=== PATIENT | male | born 2000 | race Caucasian/White ===

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

== ENCOUNTER 2023-12-31 16:07 | Emergency (ER) | payer OTHER, SELFPAY ==
[2023-12-31] VITALS (9 sets, daily range): BP systolic 142–153; BP diastolic 70–89; PULSE 101–115; RESP 18–20; TEMP 36.9; O2SAT 97–100; BMI 28.3
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
[2023-12-31 16:35] LABS: Add Manual Diff / Slide Review NO; Basophils Absolute Auto 0 /uL (0-100); Basophils Percent Auto 0.3 % (0-2); Eosinophils Absolute Auto 0 /uL (0-450); Eosinophils Percent Auto 0.3 % (2-4); Hematocrit 39.9 % (41-53); Hemoglobin 13.7 g/dL (13.5-17.5); Lymphocytes Absolute Auto 900 /uL (1100-4500); Lymphocytes Percent Auto 7.3 % (25-40); Mean Corpuscular HGB Conc 34.4 % (30-36); Mean Corpuscular Hemoglobin 29.1 PG (26-34); Mean Corpuscular Volume 84.7 fL (80-100); Monocytes Absolute Auto 800 /uL (0-900); Monocytes Percent Auto 6.7 % (3-14); Neutrophils Absolute Auto 10100 /uL (1500-7000); Neutrophils Percent Auto 85.4 % (50-75); Platelet Count 278 X10^3/uL (150-400); Red Blood Cell Count 4.71 X10^6/uL (4.5-5.9); Red Cell Distribution Width 12.9 % (11.6-14.8); White Blood Cell Count 11.9 X10^3/uL (4.5-11.0)
[2023-12-31] MEDS: SODIUM CHLORIDE 0.9% 1,000 ML 1000 ML IV (16:39)
[2023-12-31 16:43] LABS: Alanine Aminotransferase 20 IU/L (<50); Albumin 4.8 g/dL (3.5-5.0); Albumin Globulin Ratio 1.1 (1.0-2.8); Alkaline Phosphatase 74 U/L (38-126); Aspartate Aminotransferase 19 IU/L (17-59); BUN Creatinine Ratio 24.7 (6-22); Bilirubin Total 1.2 mg/dL (0.2-1.3); Blood Urea Nitrogen 20 mg/dL (9-20); Carbon Dioxide 29 mmol/L (22-32); Chloride 96 mmol/L (98-107); Estimated Glomerular Filt Rate > 60 mL/min (>60); Globulin 4.2 g/dL (1.7-4.1); Glucose 90 mg/dL (70-100); HEMOLYSIS < 15 (0-50); Lipase 35 U/L (23-300); Sodium 136 mmol/L (137-145)
[2023-12-31 17:36] LABS: Influenza A - CEPHEID Flu A NEGATIVE (NEGATIVE); Influenza B - CEPHEID Flu B NEGATIVE (NEGATIVE); Respiratory Syncytial Virus Negative (Negative)
[2023-12-31 17:58] LABS: COVID-19 CEPHEID 4-PLEX PCR Negative (Negative)
[2023-12-31 18:01] LABS: Bacteria Urine Moderate (10-30); RBC Urine None Seen (0-5/HPF); Urine Volume 10mL (spun); WBC Urine 5-10/HPF (0-5/HPF)
[2023-12-31 18:02] LABS: Culture Indicated Urine Specimen Cultured; Squamous Epithelial Cell Urine 0-1 /HPF (0-5/HPF)
[2023-12-31] MEDS: cephALEXin 250 MG CAPSULE 500 MG PO (18:20)
== END 2023-12-31 18:27 | disposition home or self-care (01) ==
PROVIDERS: Emergency Provider Emergency Medicine; Family Provider Pediatrics; PCP Pediatrics
DX: N39.0 Urinary tract infection, site not specified (principal); R00.0 Tachycardia, unspecified; R50.9 Fever, unspecified; Z20.822 Contact with and (suspected) exposure to COVID-19
CPT/HCPCS: 0241U; 36415; 80053; 81003; 81015; 83690; 85025; 87077; 87086; 87186; 93005; 96360; 96361; 99284

== ENCOUNTER 2025-08-22 11:32 | Emergency (ER) | payer OTHER, SELFPAY ==
[2025-08-22] VITALS (9 sets, daily range): BP systolic 126–162; BP diastolic 76–95; PULSE 73–108; RESP 12–18; TEMP 36.2; O2SAT 95–97; BMI 30.1
--- NOTE | 2025-08-22 13:43 | DI.CT.S_ITS ---
PROCEDURE: CT ABDOMEN PELVIS W CON INDICATIONS: Right lower quadrant pain TECHNIQUE: After the administration of intravenous contrast, axial sections acquired from the lung bases to the pubic symphysis. Coronal and sagittal reformats were performed. For radiation dose reduction, the following was used: automated exposure control, adjustment of mA and/or kV according to patient size. COMPARISON: None. FINDINGS: Image quality: Diagnostic. Lower Chest: A small hiatal hernia is incidentally noted. ABDOMEN: Liver: There is a hypervascular liver lesion seen involving the right liver, as on series 2, image 39, measuring 23 mm. Diffuse fatty liver infiltration is noted. Gallbladder: No radiopaque gallstones or wall thickening. Biliary ducts: No biliary dilation. Pancreas: No ductal dilation. Spleen: Size is within normal limits. Incidental note is made of accessory splenules along the hilum of the primary spleen. Adrenal Glands: No adrenal nodules. Kidneys and Ureters: No hydronephrosis. No solid mass. Areas of prior scarring can be seen involving the right kidney. Stomach and Bowel: In this patient with this given history, scrutiny is given to the appendix. The appendix is normal. No focal right lower quadrant inflammatory change is seen. No dilated loops of small bowel are seen. A normal appendix is noted. Peritoneum: Right-sided catheter tubing is seen, which terminates in the lower mid abdomen. No abnormal intraperitoneal fluid. No free air. Ventral Wall: No significant ventral hernia. Abdominal Nodes: No retroperitoneal or mesenteric adenopathy by size criteria. Vessels: Aorta and inferior vena cava are normal in size. PELVIS: Pelvic Organs: Unremarkable. Bladder: No bladder wall thickening, accounting for underdistention. Pelvic Nodes: No enlarged lymph nodes. Miscellaneous: No inguinal hernias are seen. Bones: No aggressive osseous abnormality. Spina bifida changes are seen. IMPRESSION: Normal appendix. No focal right lower quadrant inflammatory change is seen. 23 mm hypervascular liver lesion noted. Given the appearance and the age of the patient, this is felt most likely to be related to a hemangioma, although differential diagnosis includes a true mass. - For further evaluation, please consider a dedicated, scheduled liver protocol MRI without and with IV contrast (assuming that there is no contraindication to MRI). Areas of prior scarring are noted involving right kidney. 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 on 08/22/2025 at 13:43 Approved by: Chris Gan M.D. on 08/22/2025 at 13:47
[2025-08-22] MEDS: SODIUM CHLORIDE 0.9% 500 ML 1000 ML IV (13:59)
[2025-08-22 14:04] LABS: Add Manual Diff / Slide Review NO; Hematocrit 43.5 % (41-53); Hemoglobin 14.9 g/dL (13.5-17.5); Lymphocytes Absolute Auto 1400 /uL (1100-4500); Mean Corpuscular HGB Conc 34.2 % (30-36); Mean Corpuscular Hemoglobin 28.3 PG (26-34); Mean Corpuscular Volume 82.7 fL (80-100); Platelet Count 290 X10^3/uL (150-400)
--- NOTE | 2025-08-22 14:32 | ED_ITS ---
HPI - Abdominal Pain General Chief Complaint: Abdominal Pain Stated Complaint: Lower right stomach Shunt pain Time Seen by Provider: 08/22/25 11:39 Source: patient Mode of arrival: Family Vehicle History of Present Illness HPI narrative: Patient here for right upper quadrant pain that started yesterday when he turned a direction with this abdomen and since then has had abdominal discomfort. No nausea or vomiting no fever no chills. Patient does have his original WHITE MIXING OPERATOR shunt from childhood. However never had infection of the WHITE MIXING OPERATOR shunt. Has never been replaced. Denies abdominal surgical history. Denies any urinary complaints. Does not feel like pyelonephritis in the past. Does not want any medications for discomfort. Related Data Home Medications ?Medication ?Instructions ?Recorded ?Confirmed ondansetron 8 mg disintegrating 8 mg PO TID PRN Nausea 11/15/19 11/15/19 tablet oxybutynin chloride 10 mg 20 mg PO DAILY 11/15/1910/28 tablet,extended release 24 hr ranitidine HCl 150 mg tablet 150 mg PO BID 11/15/19 sertraline 50 mg tablet 50 mg PO DAILY 11/15/1910/28 Previous Rx's ?Medication ?Instructions ?Recorded levofloxacin 500 mg tablet 500 mg PO DAILY #14 tabs (Levaquin) ondansetron 4 mg disintegrating 4 mg PO Q6H PRN nausea and 11/15/19 tablet vomiting #14 tabs Allergies Allergy/AdvReac Type Severity Reaction Status Date / Time No Known Drug Allergies Allergy Verified 08/22/25 11:58 Review of Systems Review of Systems Narrative: GENERAL: Negative chills, fatigue, malaise, fever, sweats. HEENT: Negative sinus pain, ear pain, sore throat RESPIRATORY: Negative dyspnea, cough CARDIOVASCULAR: Negative chest pain, palpitations GASTROINTESTINAL: Negative vomiting, nausea, positive abdominal pain : Negative dysuria, frequency, hematuria MUSCULOSKELETAL: Negative muscle or bony pain SKIN: Negative rash, skin lesions NEUROLOGIC: Negative weakness, numbness ROS Unobtainable: All systems reviewed & are unremarkable except as noted in HPI and below Patient History Medical History (Updated 08/22/25 @ 17:14 by Ha Morales MD) Pyelonephritis Spina bifida Surgical History No pertinent past surgical history tobacco type: vaping alcohol intake frequency: a few times a week Exam Narrative Exam Narrative: GENERAL: in no distress, not toxic not dyspneic HEAD: Normocephalic. Palpable shunt right scalp nontender. EYES: Pupils equal round ENT: Mucous membranes moist. NECK: Trachea midline. CARDIOVASCULAR: Regular rate and rhythm RESPIRATORY: Clear to auscultation. Breath sounds equal bilaterally. No wheezes, rales, or rhonchi. GASTROINTESTINAL: Abdomen soft, mild right upper quadrant tenderness no peritoneal signs no guarding no rebound no CVA tenderness. No right lower quadrant tenderness. No McBurney point tenderness. Negative Corrigan's sign. EXTREMITIES: No gross deformities. BACK: No flank tenderness. NEURO: AOx4. Clear speech SKIN: Warm and dry PSYCH: Not anxious, is cooperative Initial Vital Signs Initial Vital Signs: Vital Signs Temperature 97.2 F L 08/22/25 11:57 Pulse Rate 108 H 08/22/25 11:57 Respiratory Rate 16 08/22/25 11:57 Blood Pressure 150/88 H 08/22/25 11:57 Pulse Oximetry 97 08/22/25 11:57 Oxygen Delivery Method Room Air 08/22/25 11:57 Course Orders Ordered: Discontinued Medications Sodium Chloride (Normal Saline 0.9%) 500 mls @ 1,000 mls/hr IV BOLUS ONE Stop: 08/22/25 14:12 Last Infusion: 08/22/25 15:14 Dose: Infused Documented By: Admin: 08/22/25 13:59 Dose: 1,000 mls/hr Documented By: Lili Vital Signs Vital signs: Vital Signs - 8 hr 08/22/25 11:57 08/22/25 13:56 08/22/25 13:57 Temperature 97.2 F L Pulse Rate 108 H 84 Respiratory Rate 16 12 Blood Pressure 150/88 H 126/76 Pulse Oximetry 97 95 Oxygen Delivery Method Room Air 08/22/25 13:57 08/22/25 14:00 08/22/25 14:00 Temperature Pulse Rate 80 75 Respiratory Rate 16 14 Blood Pressure 128/78 Pulse Oximetry 97 95 Oxygen Delivery Method Room Air MDM - Abdominal Pain Lab Data 08/22/25 13:55 08/22/25 13:55 Labs: Lab Results 08/22/25 08/22/25 Range/Units 13:55 15:40 WBC 8.2 (4.5-11.0) X10^3/uL RBC 5.26 (4.5-5.9) X10^6/uL Hgb 14.9 (13.5-17.5) g/dL Hct 43.5 (41-53) % MCV 82.7 (80-100) fL MCH 28.3 (26-34) PG MCHC 34.2 (30-36) % RDW 14.0 (11.6-14.8) % Plt Count 290 (150-400) X10^3/uL Neut % (Auto) 71.9 (50-75) % Lymph % (Auto) 17.6 L (25-40) % Winston % (Auto) 6.5 (3-14) % Eos % (Auto) 3.0 (2-4) % Baso % (Auto) 1.0 (0-2) % Neut # (Auto) 5900 (1240-9425) /uL Lymph # (Auto) 1400 (0381-2868) /uL Winston # (Auto) 500 (0-900) /uL Eos # (Auto) 200 (0-450) /uL Baso # (Auto) 100 (0-100) /uL Sodium 138 (137-145) mmol/L Potassium 4.3 (3.4-5.1) mmol/L Chloride 101 (98-107) mmol/L Carbon Dioxide 25 (22-32) mmol/L BUN 19 (9-20) mg/dL Creatinine 0.72 (0.66-1.25) mg/dL Estimated GFR > 60 (>60) mL/min BUN/Creatinine Ratio 26.4 H (6-22) Glucose 82 (70-99) mg/dL Calcium 9.4 (8.4-10.2) mg/dL Total Bilirubin 0.5 (0.2-1.3) mg/dL AST 32 (17-59) IU/L ALT 37 (<50) IU/L Alkaline Phosphatase 76 (38-126) U/L Total Protein 8.5 H (6.3-8.2) g/dL Albumin 4.9 (3.5-5.0) g/dL Globulin 3.6 (1.7-4.1) g/dL Albumin/Globulin Ratio 1.4 (1.0-2.8) Urine RBC None seen (0-5/HPF) Urine WBC 0-1/hpf (0-5/HPF) Ur Squamous Epith Cells None seen (0-5/HPF) Ur Transition Epith Cell None seen (0-5/HPF) Amorphous Sediment 1+ Urine Bacteria None seen (None) Ur Culture Indicated? Cult not indicated Vol Urine Centrifuged 10ml (spun) Point of care testing: Urine Dip Bedside Urine Glucose Negative Bedside Urine Bilirubin - Negative Bedside Urine Ketone - Negative Urine Specific [place] 1.005 Bedside Urine Occult Blood - Negative Bedside Urine pH 7.0 Bedside Urine Protein +/- 15 Bedside Urine Urobilinogen +/- 1mg Bedside Urine Nitrite - Negative Bedside Urine Leukocytes - Negative Esterase Imaging Data CT scan - abdomen/pelvis: Radiologist's Impression: [address] [address] [address] Scan Report Signed Patient: Figueroa Orellana MR#: [id number] : 2000 Acct:[id number] Age/Sex: 25 / M Date of Service: 08/22/25 Loc: ED Accession Number: [id number] Procedure: CT abdomen pelvis w con Ordering Provider: Ha Morales MD PROCEDURE: CT ABDOMEN PELVIS W CON INDICATIONS: Right lower quadrant pain TECHNIQUE: After the administration of intravenous contrast, axial sections acquired from the lung bases to the pubic symphysis. Coronal and sagittal reformats were performed. For radiation dose reduction, the following was used: automated exposure control, adjustment of mA and/or kV according to patient size. COMPARISON: None. FINDINGS: Image quality: Diagnostic. Lower Chest: A small hiatal hernia is incidentally noted. ABDOMEN: Liver: There is a hypervascular liver lesion seen involving the right liver, as on series 2, image 39, measuring 23 mm. Diffuse fatty liver infiltration is noted. Gallbladder: No radiopaque gallstones or wall thickening. Biliary ducts: No biliary dilation. Pancreas: No ductal dilation. Spleen: Size is within normal limits. Incidental note is made of accessory splenules along the hilum of the primary spleen. Adrenal Glands: No adrenal nodules. Kidneys and Ureters: No hydronephrosis. No solid mass. Areas of prior scarring can be seen involving the right kidney. Stomach and Bowel: In this patient with this given history, scrutiny is given to the appendix. The appendix is normal. No focal right lower quadrant inflammatory change is seen. No dilated loops of small bowel are seen. A normal appendix is noted. Peritoneum: Right-sided catheter tubing is seen, which terminates in the lower mid abdomen. No abnormal intraperitoneal fluid. No free air. Ventral Wall: No significant ventral hernia. Abdominal Nodes: No retroperitoneal or mesenteric adenopathy by size criteria. Vessels: Aorta and inferior vena cava are normal in size. PELVIS: Pelvic Organs: Unremarkable. Bladder: No bladder wall thickening, accounting for underdistention. Pelvic Nodes: No enlarged lymph nodes. Miscellaneous: No inguinal hernias are seen. Bones: No aggressive osseous abnormality. Spina bifida changes are seen. IMPRESSION: Normal appendix. No focal right lower quadrant inflammatory change is seen. 23 mm hypervascular liver lesion noted. Given the appearance and the age of the patient, this is felt most likely to be related to a hemangioma, although differential diagnosis includes a true mass. - For further evaluation, please consider a dedicated, scheduled liver protocol MRI without and with IV contrast (assuming that there is no contraindication to MRI). Areas of prior scarring are noted involving right kidney. Additional findings: Small hiatal hernia Fatty liver infiltration Accessory splenules Right-sided catheter tubing, likely related to a WHITE MIXING OPERATOR shunt Spina bifida change Dictated by: Chris Gan M.D. on 08/22/2025 at 13:43 Approved by: Chris Gan M.D. on 08/22/2025 at 13:47 [facility] Narrative Medical decision making narrative: Patient here for right upper quadrant pain that started yesterday when he turned a direction with this abdomen and since then has had abdominal discomfort. No nausea or vomiting no fever no chills. Patient does have his original WHITE MIXING OPERATOR shunt from childhood. However never had infection of the WHITE MIXING OPERATOR shunt. Has never been replaced. Denies abdominal surgical history. Denies any urinary complaints. Does not feel like pyelonephritis in the past. Does not want any medications for discomfort. MDM After history and exam, CBC CMP urinalysis CT abdomen pelvis normal saline Differential considered: Includes but not limited to cholelithiasis cholecystitis appendicitis WHITE MIXING OPERATOR shunt malfunction peritonitis Medical records reviewed: No recent visit for this complaint Lab Test results independently reviewed as above. Pertinent findings: WBC 8.2, glucose 82 AST 32 ALT 37 total bilirubin 0.5 urinalysis negative nitrite negative leukocyte Imaging studies independently reviewed: CT abdomen pelvis normal appendix, likely liver hemangioma seen, x-ray BP shunt series no acute finding in the abdomen. Shunt not seen on skull x-ray. Consultations: None indicated at this time Re-evaluations: 5:14 p.m.. Updated patient results. Pain is controlled. Reviewed with him laboratory results and x-ray imaging cat scan imaging and laboratory studies. He still can feel the shunt on his right scalp. However has no headache. Reviewed with him shunt was not seen on skull x-ray. Again he has no headache. Reviewed with him abdominal pain could be muscle strain when he turned. However he does need to have his CAT scan liver findings follow up with primary care for MRI of the liver. He does agree. Return precautions reviewed and he desires discharge home. Discussion: Appropriate for discharge home. Exam and laboratory studies imaging studies reassuring. Return precautions reviewed patient. He desires discharge home. IV contrast used for CT imaging Diagnosis: Right abdominal upper quadrant pain Discharge Plan Departure Patient Disposition: Home Clinical Impression: Abdominal pain Qualifiers: Abdominal location: right upper quadrant Qualified Code(s): R10.11 - Right upper quadrant pain Instructions: DI for Abdominal Pain-Adult Activity Restrictions/Additional Instructions: Your exam and laboratory studies are reassuring. Please do see family doctor regarding CAT scan findings on your liver for outpatient MRI of the liver. Continue home medications. Return if worse if any questions or concerns. Prescriptions: No Action oxybutynin chloride 10 mg tablet extended release 24hr 20 mg PO DAILY Patient Comments: TK 2 TS PO QD ondansetron 8 mg tablet,disintegrating 8 mg PO TID PRN (Reason: Nausea) sertraline 50 mg tablet 50 mg PO DAILY Patient Comments: TK 1 T PO QD ranitidine HCl 150 mg tablet 150 mg PO BID levofloxacin [Levaquin] 500 mg tablet 500 mg PO DAILY Qty: 14 0RF ondansetron 4 mg tablet,disintegrating 4 mg PO Q6H PRN (Reason: nausea and vomiting) Qty: 14 0RF Referrals: Gavin Morris MD [Primary Care Provider, Pediatrics] Stand Alone Forms: Patient Portal/API
[2025-08-22 14:35] LABS: Alanine Aminotransferase 37 IU/L (<50); Albumin 4.9 g/dL (3.5-5.0); Albumin Globulin Ratio 1.4 (1.0-2.8); Alkaline Phosphatase 76 U/L (38-126); Blood Urea Nitrogen 19 mg/dL (9-20); Calcium 9.4 mg/dL (8.4-10.2); Carbon Dioxide 25 mmol/L (22-32); Chloride 101 mmol/L (98-107); Estimated Glomerular Filt Rate > 60 mL/min (>60); Globulin 3.6 g/dL (1.7-4.1); Glucose 82 mg/dL (70-99); HEMOLYSIS < 15 (0-50); Potassium 4.3 mmol/L (3.4-5.1); Sodium 138 mmol/L (137-145); Total Protein 8.5 g/dL (6.3-8.2)
--- NOTE | 2025-08-22 15:06 | DI.RAD.S_ITS ---
PROCEDURE: XR ABDOMEN 1V INDICATIONS: V[employer] shunt series TECHNIQUE: Pain throughout the course of the VELVET [employer]ER shunt. COMPARISON: [facility], CT, CT ABDOMEN PELVIS W CON, 08/22/2025, 14:10. FINDINGS: Surgical changes and devices: Right-sided ventricular peritoneal shunt catheter tubing can be seen, with the tip terminating within the mid abdomen. No kinks or discontinuities can be seen along the course of the tubing, although intracranial tubing is not seen in this patient. Bowel: Bowel gas pattern is normal. Soft tissues: No suspicious abdominal calcifications. Visualized solid organ contours appear normal in size. No significant chest abnormality is seen. Excreting contrast can be seen within the renal collecting systems. Bones: No suspicious bony lesions. IMPRESSION: Intracranial tubing not seen in this patient. Please correlate with known patient history. The remainder of the VELVET WEAVER shunt catheter tubing appears normal. Dictated by: Chris Gan M.D. on 08/22/2025 at 14:29 Approved by: Chris Gan M.D. on 08/22/2025 at 14:30
[2025-08-22 16:24] LABS: Culture Indicated Urine Cult Not Indicated
== END 2025-08-22 17:28 | disposition home or self-care (01) ==
PROVIDERS: Emergency Provider Emergency Medicine; PCP Pediatrics
DX: R10.11 Right upper quadrant pain (principal)
CPT/HCPCS: 36415; 74018; 74177; 80053; 81003; 81015; 85025; 96360; 99284

== ENCOUNTER → 2025-10-03 13:10 | Outpatient (CLI) | payer OTHER, SELFPAY ==
--- NOTE | 2025-10-03 13:11 | DI.MRI.S_ITS ---
PROCEDURE: MR ABDOMEN LIVER PROTOCOL
== END ==
PROVIDERS: PCP Student in an Organized Health Care Education/Training Program; Referring Provider Student in an Organized Health Care Education/Training Program; Visit Provider Student in an Organized Health Care Education/Training Program
DX: K76.9 Liver disease, unspecified (principal)
CPT/HCPCS: 74183; A9579

== ENCOUNTER 2025-11-05 10:58 | Day surgery (SDC) | payer OTHER, SELFPAY ==
[2025-10-30 12:51] VITALS: BMI 30.9
--- NOTE | 2025-11-05 | PATH_ITS ---
[facility] Accession Number: [id number] No. of containers..03 Tissue . 01 Material submitted: . PART A: duodenum - DUODENAL PART B: stomach - ANTRUM PART C: esophagus - ESOPHAGEAL . 01 Diagnosis: A. DUODENUM, BIOPSY: Gastric heterotopia. Negative for active inflammation, features of sprue, dysplasia, or malignancy. . B. GASTRIC ANTRUM, BIOPSY: Gastric antral mucosa with mild chronic inflammation. Negative for Helicobacter organisms by immunohistochemistry. Negative for intestinal metaplasia. Negative for dysplasia or malignancy. . C. ESOPHAGUS, BIOPSY: Squamous epithelium with no diagnostic abnormality. Intraepithelial eosinophils are not increased. Negative for dysplasia and malignancy. MRV 11/08/2025 1636 Local . 01 Electronically signed: . Eliazar Patel MD, PhD, Pathologist NPI- [id number] . 01 Gross description: . A. Received in formalin with two patient identifiers, and 1. Duodenal biopsies are two 0.2-0.3 cm emmanuel tissue fragments, entirely submitted in A1. B. Received in formalin with two patient identifiers, and 2. Antrum biopsies are two 0.1-0.2 cm emmanuel tissue fragments, entirely submitted in B1. C. Received in formalin with two patient identifiers, and 3. Esophagus biopsies are three 0.3-0.4 cm emmanuel tissue fragments, entirely submitted in C1. ([id number]) /MRV 11/06/2025 1934 Local . 01 Microscopic: . B. An immunohistochemical stain was performed to evaluate for Helicobacter organisms and is negative. The control stain showed appropriate reactivity. . * This test was developed and the performance characteristics were validated by [employer]. It has not been cleared or approved by the U.S. Food and Drug Administration. . 01 Pathologist provided ICD-10: K29.70, K31.7, K21.9 . 01 CPT . 453422, 665882, 485637, [id number] Performed at: [address] [id number] MD Erik Oviedo MD Phone: [phone]
--- NOTE | 2025-11-05 07:08 | PM.PREOP ---
Pre-operative Note Interval Note History & Physical reviewed/Exam performed by Physician: Yes Changes to H&P: No ASA Class (for procedural sedation): II
[2025-11-05 11:27] VITALS: BP 149/93; PULSE 102; RESP 17; TEMP 36.8; O2SAT 98
[2025-11-05] MEDS: LACTATED RINGERS 1,000 ML 42 ML IV (11:27)
--- NOTE | 2025-11-05 11:50 | PM.OP.EGD ---
Operative Date/Time/Diagnoses Date of procedure: 11/05/25 Time of procedure: 12:15 Pre-op diagnosis: GERD, HH Post-op diagnosis: same (HH, esophagitis, duodenitis, gastritis) Procedure & Clinicians Study performed: EGD with biopsy Same procedure(s) as scheduled: Yes Indications: GERD, hiatal hernia on imaging Surgeon: Gordon Rios Anesthesia Type: MAC +/- Procedure Notes SCOAP/Timeout: Performed Procedure in detail: EGD Informed consent was obtained. The procedure, its risks, benefits, and alternatives were discussed. Patient understood and agreed to proceed. The patient was placed in the left lateral decubitus position with head elevated. Sedation given per anesthesia. The video endoscope was inserted into the oropharynx and guided under direct vision into the esophagus, stomach, and duodenum which were carefully examined. The scope was retroflexed to examine the hiatus and gastroesophageal junction. Antral biopsies were obtained for Helicobacter pylori. The patient tolerated the procedure very well. There were no apparent complications. Significant EGD findings: Z-line noted at: 35cm LA Grade A esophagitis, biopsied 2cm hiatal hernia (prominent with inspiration) Moderate duodenitis with gastric ectopia appearance, biopsied Mild antral gastritis, biopsied No ulcer in duodenum, stomach or esophagus Findings: gastritis, hiatal hernia and other findings (esophagitis) Specimen(s): other (biopsies) Estimated Blood Loss: 5 Complications: none Impression: LA Grade A esophagitis 2cm hiatal hernia Mild antral gastritis Moderate duodenitis Post-procedure Recommendations: Will call with biopsy results Plan for aftercare: PACU then home Continue PPI for now Biopsy results pending Follow up: as needed Disposition: PACU
[2025-11-05 12:15] VITALS: BP 106/52; PULSE 79; RESP 18; TEMP 36.4; O2SAT 91
[2025-11-05 12:21] VITALS: BP 104/51; PULSE 102; RESP 22; TEMP 37.1; O2SAT 96
== END 2025-11-05 12:54 | disposition home or self-care (01) ==
PROVIDERS: PCP Student in an Organized Health Care Education/Training Program; Referring Provider Surgery; Visit Provider Surgery
PROC: 0DJ08ZZ Inspection of Upper Intestinal Tract, Via Natural or Artificial Opening Endoscopic (ICD-10-PCS; CPT 43239; principal; 2025-11-05 12:30)
DX: K21.9 Gastro-esophageal reflux disease without esophagitis (principal); K44.9 Diaphragmatic hernia without obstruction or gangrene; Z87.891 Personal history of nicotine dependence; Z86.69 Personal history of other diseases of the nervous system and sense organs; Z98.2 Presence of cerebrospinal fluid drainage device; K20.90 Esophagitis, unspecified without bleeding; K29.80 Duodenitis without bleeding; K29.70 Gastritis, unspecified, without bleeding; K29.50 Unspecified chronic gastritis without bleeding
CPT/HCPCS: 43239; J2704; J7120